=== PATIENT | female | born 2000 | race Two or more races ===

== ENCOUNTER 2021-09-19 10:20 | Inpatient (IN) | payer OTHER ==
[~2021-09-19] VITALS: Ht 160 cm; Wt 59.9 kg
[2021-09-19] MEDS ORDERED: PRENATAL CAPLE1 EAC1 PO (11:30)
== END 2021-09-22 09:46 | disposition home or self-care (01) | DRG 833 ==
LOC: LDR 10:20 → OB/GYN 09-21 09:50
PROVIDERS: ADMIT Obstetrics & Gynecology; ATTEND Obstetrics & Gynecology
PROC: 4A1HXCZ Monitoring of Products of Conception, Cardiac Rate, External Approach (ICD-10-PCS; principal; 2021-09-19)
PROC: BY4FZZZ Ultrasonography of Third Trimester, Single Fetus (ICD-10-PCS; 2021-09-19)
DX: O60.00 Preterm labor without delivery, unspecified trimester (principal); O26.843 Uterine size-date discrepancy, third trimester; Z3A.32 32 weeks gestation of pregnancy; Z20.822 Contact with and (suspected) exposure to COVID-19; O36.8130 Decreased fetal movements, third trimester, not applicable or unspecified

== ENCOUNTER 2021-10-03 11:35 | Inpatient (IN) | payer OTHER ==
[~2021-10-03] VITALS: Ht 160 cm; Wt 66.2 kg
[~2021-10-03 11:35] MED LIST: PRENATAL CAPLE1 EAC1 PO
[2021-10-03] MEDS ORDERED: NIFEDIPINE20 MG PO (13:51)
== END 2021-10-10 12:46 | disposition home or self-care (01) | DRG 833 ==
LOC: LDR 11:35 → OB/GYN 10-04 10:24
PROVIDERS: ADMIT Obstetrics & Gynecology; ATTEND Obstetrics & Gynecology
PROC: 4A1HXCZ Monitoring of Products of Conception, Cardiac Rate, External Approach (ICD-10-PCS; principal; 2021-10-03)
PROC: BY4FZZZ Ultrasonography of Third Trimester, Single Fetus (ICD-10-PCS; 2021-10-03)
PROC: BU4CZZZ Ultrasonography of Uterus and Ovaries (ICD-10-PCS; 2021-10-03)
DX: O60.03 Preterm labor without delivery, third trimester (principal); O26.843 Uterine size-date discrepancy, third trimester; O35.0XX0 Maternal care for (suspected) central nervous system malformation in fetus, not applicable or unspecified; Z3A.34 34 weeks gestation of pregnancy; Z20.822 Contact with and (suspected) exposure to COVID-19

== ENCOUNTER 2021-10-17 10:49 | Outpatient (CLI) | payer OTHER ==
[~2021-10-17 10:49] MED LIST changes: +NIFEDIPINE20 MG PO
== END 2021-10-18 09:00 | disposition home or self-care (01) ==
LOC: OBS/DEL 10:49
PROVIDERS: ATTEND Obstetrics & Gynecology
DX: O26.893 Other specified pregnancy related conditions, third trimester (principal); Z3A.36 36 weeks gestation of pregnancy; R10.2 Pelvic and perineal pain

== ENCOUNTER 2021-11-06 13:02 | Outpatient (CLI) | payer OTHER | END 2021-11-06 15:03 | disposition home or self-care (01) | LOC: OBS/DEL 13:02 | PROVIDERS: ATTEND Obstetrics & Gynecology | DX: O47.1 False labor at or after 37 completed weeks of gestation (principal); Z3A.38 38 weeks gestation of pregnancy; Z91.040 Latex allergy status ==